=== PATIENT | female | born 1990 | race Caucasian/White ===

== ENCOUNTER 2019-02-13 12:42 | Inpatient (IN) ==
[2019-02-13] MEDS ORDERED: OXYTOCIN 30 UNITS/500 ML BAG IV PRN ×3 (12:49→18:42)
[2019-02-13 13:12] LABS: Hematocrit (blood only) 35.7 % (37-47); Hemoglobin 11.9 g/dL (12.0-16.0); Mean Corpuscular Hemoglobin 29.3 pg (25-34); Mean Corpuscular Volume 87.9 fL (80-100); Mean Platelet Volume 11.5 fL (7.4-10.4); Platelet Count 167 K/uL (130-400); RDW Coefficient of Variation 13.9 % (11.5-14.5); RDW Standard Deviation 44.3 fL (36.4-46.3); Red Blood Count 4.06 M/uL (4.2-5.4); White Blood Count 9.06 K/uL (4.8-10.8)
[2019-02-13 13:22] LABS: Mean Corpuscular Hgb Conc 33.3 g/dL (32-36)
[2019-02-13] MEDS: LACTATED RINGER'S 1,000 ML IV PRN ×2 (15:15→16:36)
[2019-02-13] MEDS ORDERED: ePHEDrine sulfate 50 MG/ML AMP ONE (15:28)
[2019-02-13] MEDS ORDERED: BUPIVACAINE 0.25% 30 ML VIAL ONE (15:28)
[2019-02-13] MEDS ORDERED: fentaNYL citrate 100 MCG/2 ML VIAL ONE (15:29)
[2019-02-13] MEDS ORDERED: fentaNYL 2MCG/ML ROPIV 1.25MG/ML 100 ML BAG EPI ONE (15:29)
--- NOTE | 2019-02-13 16:05 | Anesthesiology Consultation ---
Date of Service February 13, 2019 Assessment & Plan (1) Encounter for pre-operative examination: Chart Review Chart Review: Patient NOT seen in Pre Admission Testing and Acceptable Risk for Labor Epidural Consults Requested none ASA ASA2 Proposed Anesthesia Anesthesia Type: Labor Epidural Risk / Benefits Reviewed With: PT / POA / Parent / Guardian, Accepts Plan and Informed Consent Obtained History Height/Weight Height: 5 ft 4 in Weight: 70.76 kg Allergies Allergy/AdvReac Type Severity Reaction Status Date / Time No Known Allergies Allergy Unverified 12/06/18 10:38 Medications Home Medications Medication Instructions Recorded Confirmed Last Taken 21-iron fu-folic acid 1 tab PO DAILY 12/06/18 02/13/19 02/13/19 [ Complete] Active Medications Generic Name Dose Route Start Last Admin Trade Name Freq PRN Reason Stop Dose Admin Lactated Ringer's 1,000 mls @ 125 mls/hr 02/13/19 12:49 02/13/19 15:15 Lr IV 02/15/19 12:48 999 mls/hr .Q8H PRN Administration L&D Protocol Protocol Oxytocin 30 units in 500 mls @ 4 mls/hr 02/13/19 12:52 02/13/19 14:55 Pitocin IV 02/15/19 12:51 0.24 units/hr .Q24H PRN 4 mls/hr Labor Induction/Augmentation Titration Protocol 0.24 UNITS/HR NPO Date Last Intake of Fluids: 02/13/19 Time Last Intake of Fluids: 16:03 Date Last Intake of Solids: 02/13/19 Time Last Intake of Solids: 11:30 Past Medical History Medical History H/O wisdom tooth extraction (Acute) Exercise / Class Metabolic Activity II 4-5 Yardwork/Stairs/Walk up hill Past Surgical History Surgical History History of dilatation and curettage (Acute) Past Anesthesia History No Hx of Anesthesia Complications History of PONV No Hx of PONV and No Hx of Motion Sickness Social History Smoking Status: Never smoker Do You Dip or Chew Tobacco: No Hx Alcohol Use: No Hx Substance Use: No Review of Systems Patient denies numbness, tingling or weakness in lower extremities. Patient denies history of abnormal bleeding or bleeding disorder. Patient denies active use of anticoagulants other than low dose aspirin. Physical Exam Vital Signs Last Vital Signs Temp 36.7 C 02/13/19 12:45 Pulse 102 H 02/13/19 15:57 Resp 20 02/13/19 15:30 BP 134/85 02/13/19 12:47 Pulse Ox 98 02/13/19 15:57 Constitutional not obese gravid uterus ENMT Mouth: no TMJ abnormality and oral opening not small Thyromental Distance: > or= 3.5 Finger Breadths Mallampati Class: II Neck normal visual inspection; neck extension not limited Respiratory normal respiratory effort Auscultation: lungs clear to auscultation bilaterally Cardiovascular Rate/Rhythm: regular rate and regular rhythm Heart Sounds: no murmur Neurologic moves all extremities Psychiatric Orientation: alert and oriented x 3 Testing Laboratory Results 02/13/19 12:59
[2019-02-13] MEDS ORDERED: NALBUPHINE HCL INJ 10 MG/ML AMP IV PRN (16:35)
[2019-02-13] MEDS ORDERED: fentaNYL 2MCG/ML ROPIV 1.25MG/ML 100 ML BAG EPI PRN (16:35)
[2019-02-13] MEDS ORDERED: ePHEDrine sulfate 50 MG/ML AMP IV PRN (16:35)
[2019-02-13] MEDS ORDERED: NALOXONE HCL 1 MG in SODIUM CHLORIDE 0.9% 1000ML 1,000 ML IV PRN (16:35)
[2019-02-13] MEDS ORDERED: DiphenhydrAMINE HCL 50 MG/ML VIAL IV PRN (16:35)
[2019-02-13] MEDS ORDERED: ONDANSETRON INJ 2 MG/ML 2 ML VIAL IV PRN (16:35)
[2019-02-13] MEDS ORDERED: NALOXONE HCL 0.4 MG/1 ML VIAL/CARP IV PRN (16:35)
[2019-02-13] MEDS ORDERED: ACETAMINOPHEN 325 MG TAB PO PRN (18:42)
[2019-02-13] MEDS ORDERED: HYDROCORTISONE ACETATE 25 MG SUPP PR PRN (18:42)
[2019-02-13] MEDS ORDERED: OXYCODONE/ACETAMINOPHEN 5mg/325mg TAB PO PRN (18:42)
[2019-02-13] MEDS ORDERED: BENZOCAINE 20% AER SPR 82.5 GM CAN EXT PRN (18:42)
[2019-02-13] MEDS ORDERED: ACETAMINOPHEN W/CODEINE #3 1 TAB PO PRN (18:42)
[2019-02-13] MEDS ORDERED: SUPERCREAM 0.870% 15 GM JAR EXT PRN (18:42)
[2019-02-13] MEDS ORDERED: DIPHTHERIA/TETANUS/PERTUSSIS 0.5 ML SYR/VIAL IM ONE (18:42)
--- NOTE | 2019-02-13 19:09 | Anesthesia Procedure Note ---
Date of Service February 13, 2019 Anesthesia Post Epidural Note Vital Signs Vital Signs: Temp Pulse Resp BP Pulse Ox 37.2 C 115 H 20 141/87 H 98 02/13/19 18:47 02/13/19 18:59 02/13/19 18:47 02/13/19 18:59 02/13/19 18:37 Notes Mental Status: alert / awake / arousable and participated in evaluation Nausea / Vomiting: adequately controlled Pain: adequately controlled Airway Patency, RR, SpO2: stable & adequate BP & HR: stable & adequate Hydration State: stable & adequate Neuraxial Anesthesia: was administered and sensory block is resolving Anesthetic Complications: no major complications apparent and Pt Satisfied with anesthetic care Epidural: Removed without complications and With tip intact Notes: Epidural site clean, dry and intact. No signs of edema, erythema or bruising at insertion site. Pt instructed to request anesthesia if she has residual lower extremity numbness or if she develops lower extremity pain or weakness, back pain or headache.
[2019-02-13] MEDS: IBUPROFEN 600 MG TAB PO PRN (21:09)
--- NOTE | 2019-02-13 22:01 | Delivery Summary ---
DATE OF OPERATION: 02/13/2019 The patient is a 28-year-old 3, para 2, 1 spontaneous AB, good general health. Blood type is A negative. Vaginal beta strep negative. Well dated with an early ultrasound, due date is 02/15/2019. Rubella immune. The last 2 weeks she was seen in the office, her cervix was 4-5 cm, and then when we brought her in her cervix was 6-7 cm. She was brought in 6-7 cm. Pitocin was started. When she started to have a good regular pattern, she received epidural anesthesia. We then continued to up the Pitocin, ruptured the membranes. Fluid was clear, went to full dilatation. With about 4 pushes, pushed out a live male via direct occiput anterior position over an intact perineum. was suctioned through the mouth and the nose. Shoulders were delivered without difficulty. Cord was clamped, cut by the father. Cord blood was taken. With IV Pitocin running, the placenta was removed intact. Inspection of the perineum revealed a second-degree laceration. This was repaired anatomically. The vaginal mucosa was approximated out and to beyond the hymenal ring with a running 2-0 Vicryl. Then 2 interrupted sutures of 2-0 Vicryl were used to approximate the perineal body. A separate suture was used to bolster the rectal sphincter capsule and then a deep suture was used to approximate the bulbocavernosus muscle. A running subcuticular suture was used to approximate the perineal skin edges. Following this, vag exam including rectovaginal examination revealed no hematoma formation, sponges in the vagina. I attest to the content of the Intraoperative Record and any orders documented therein. Any exception s are noted below.
[2019-02-14] MEDS: DOCUSATE SODIUM 100 MG CAP PO SCH ×2 (02:08→07:45)
[2019-02-14] MEDS: IBUPROFEN 600 MG TAB PO PRN ×3 (04:26→17:17)
[2019-02-14 06:40] LABS: Hematocrit (blood only) 30.2 % (37-47); Mean Corpuscular Hemoglobin 29.7 pg (25-34); Mean Corpuscular Hgb Conc 33.1 g/dL (32-36); Mean Corpuscular Volume 89.6 fL (80-100); Mean Platelet Volume 11.5 fL (7.4-10.4); Platelet Count 145 K/uL (130-400); RDW Coefficient of Variation 13.8 % (11.5-14.5); RDW Standard Deviation 44.7 fL (36.4-46.3); Red Blood Count 3.37 M/uL (4.2-5.4); White Blood Count 12.66 K/uL (4.8-10.8)
[2019-02-14] MEDS ORDERED: PRENATAL VITAMIN 1 TAB PO SCH (08:00)
[2019-02-14] MEDS ORDERED: FERROUS SULFATE 325 MG TAB PO SCH (08:00)
--- NOTE | 2019-02-14 08:53 | Obstetrical Progress Note ---
Date of Service February 14, 2019 Physical Exam Physical Exam: abdomen soft and non tender vaginal bleeding scant to moderate hgb 10.0 no calf tenderness ambulating well no problems Results & Data Vital Signs (Past 12 Hours) Vital Signs Temp Pulse Resp BP Pulse Ox 02/14/19 06:43 36.4 C L 87 16 138/84 98 02/14/19 01:44 36.7 C 95 H 14 130/84 97
[2019-02-14] MEDS ORDERED: bisacodyL 5 MG TABEC PO SCH (20:00)
[2019-02-15] MEDS ORDERED: bisacodyL 10 MG SUPP PR PRN (09:00)
== END 2019-02-14 19:25 | disposition home or self-care (01) | DRG 807 ==
LOC: OPB 12:42 → 4S1 12:45 → 4S2 23:33